=== PATIENT | female | born 1960 | race Two or more races ===

== ENCOUNTER → 2017-07-30 | Outpatient (CLI) | payer OTHER ==
[~2017-07-30] VITALS: Ht 152.4 cm; Wt 81.6 kg
[~2017-07-30] MED LIST: ESCITALOPRAM OX10 MG PO; LEXAPRO20 MG
== END | disposition home or self-care (01) ==
LOC: PPHC 18:04
DX: Z76.0 Encounter for issue of repeat prescription (principal)

== ENCOUNTER → 2017-08-08 13:35 | Outpatient (CLI) | payer OTHER | END | disposition home or self-care (01) | LOC: LAB 13:35 | DX: Z00.00 Encounter for general adult medical examination without abnormal findings (principal) ==

== ENCOUNTER 2018-07-25 15:02 | Outpatient (CLI) | payer OTHER | END 2018-07-25 15:06 | disposition home or self-care (01) | LOC: LAB 15:02 | DX: E55.9 Vitamin D deficiency, unspecified (principal); Z00.00 Encounter for general adult medical examination without abnormal findings ==

== ENCOUNTER → 2018-08-29 12:54 | Outpatient (CLI) | payer OTHER | END | disposition home or self-care (01) | LOC: LAB 12:54 | DX: E78.49 Other hyperlipidemia (principal); E55.9 Vitamin D deficiency, unspecified ==

== ENCOUNTER → 2018-11-24 12:07 | Outpatient (CLI) | payer OTHER | END | disposition home or self-care (01) | LOC: LAB 12:07 | DX: E23.6 Other disorders of pituitary gland (principal); N91.2 Amenorrhea, unspecified; N95.1 Menopausal and female climacteric states; R19.00 Intra-abdominal and pelvic swelling, mass and lump, unspecified site; N39.0 Urinary tract infection, site not specified ==

== ENCOUNTER → 2018-11-25 | Outpatient (CLI) | payer OTHER | END | disposition home or self-care (01) | LOC: MAMO-SONO 10:45 | DX: N63.10 Unspecified lump in the right breast, unspecified quadrant (principal); N63.20 Unspecified lump in the left breast, unspecified quadrant; Z12.31 Encounter for screening mammogram for malignant neoplasm of breast ==

== ENCOUNTER 2020-07-03 15:14 | Outpatient (CLI) | payer OTHER | END 2020-07-03 15:22 | disposition home or self-care (01) | LOC: LAB 15:14 | PROVIDERS: ATTEND General Practice | DX: N39.0 Urinary tract infection, site not specified (principal); Z00.00 Encounter for general adult medical examination without abnormal findings; E55.0 Rickets, active; D51.8 Other vitamin B12 deficiency anemias; Z13.29 Encounter for screening for other suspected endocrine disorder ==

== ENCOUNTER 2021-04-05 13:15 | Outpatient (CLI) | payer OTHER | END 2021-04-05 13:20 | disposition home or self-care (01) | LOC: RAD 13:15 | PROVIDERS: ATTEND Internal Medicine Cardiovascular Disease | DX: I10 Essential (primary) hypertension (principal) ==

== ENCOUNTER 2022-05-18 13:28 | Outpatient (CLI) | payer OTHER | END 2022-05-18 13:53 | disposition home or self-care (01) | LOC: LAB 13:28 | PROVIDERS: ATTEND Internal Medicine Cardiovascular Disease | DX: I10 Essential (primary) hypertension (principal) ==

== ENCOUNTER → 2023-05-01 11:49 | Outpatient (CLI) | payer OTHER ==
[2023-05-01 12:57] LABS: PH,URINE 5.5 (5.0-8.0); URINE APPEARANCE Clear; URINE BILIRRUBIN Negative (NEGATIVE); URINE BLOOD Negative; URINE COLOR Yellow; URINE GLUCOSE Negative (NEGATIVE); URINE LEUKOCYTE Negative; URINE NITRATE Negative; URINE PROTEIN Negative (NEGATIVE); URINE UROBILINOGEN 0.2 E.U./dl
[2023-05-01 12:58] LABS: URINE BACTERIA 37.7 uL (0.0-1933); URINE RBC 3.1 uL (0.0-20.8)
[2023-05-01 13:03] LABS: HEMATOCRIT 41.7 % (36.0-45.00); HEMOGLOBIN 14.6 g/dL (12.0-15.00); MEAN CELL VOLUME 93.2 fL (80.00-100.00); MEAN CORPUSCULAR HEMOGLOBIN 32.6 pg (27.00-32.0); MEAN CORPUSCULAR HGB CONC 34.9 g/dl (32.0-36.0); PLATELET COUNT 256 K/uL (150-450); RED BLOOD COUNT 4.48 M/uL (4.00-6.00); RED CELL DISTRIBUTION WIDTH 13.2 % (11.5-14.5)
[2023-05-01 13:16] LABS: URINE EPITHELIAL CELLS 1.2 uL (0.0-38.8)
[2023-05-01 13:37] LABS: ALBUMIN 3.9 gm/dL (3.4-5.0); BILIRUBIN TOTAL 0.41 mg/dL (0.3-1.2); CALCIUM 9.4 mg/dL (8.5-10.1); CHOL HDL RATIO 3.8 (0-5.0); CREATININE SERUM 0.7 mg/dL (0.55-1.02); GFR 84.24; GLOBULINA 3.3 G/DL (2.4-3.5); POTASSIUM 4.29 mEq/L (3.5-5.1); TOTAL PROTEIN 7.2 gm/dL (6.4-8.2); TSH 1.45 uIU/mL (0.358-3.74)
[2023-05-01 14:44] LABS: VITAMIN D3 25 HYDROXY 23.82 ng/ml (30-120)
== END | disposition home or self-care (01) ==
LOC: LAB 11:49
PROVIDERS: ATTEND Obstetrics & Gynecology
DX: E78.5 Hyperlipidemia, unspecified (principal); N95.1 Menopausal and female climacteric states; E23.6 Other disorders of pituitary gland; N39.0 Urinary tract infection, site not specified; N73.9 Female pelvic inflammatory disease, unspecified; A60.04 Herpesviral vulvovaginitis

== ENCOUNTER 2023-05-01 12:43 | Outpatient (CLI) | payer OTHER | END 2023-05-01 12:54 | disposition home or self-care (01) | LOC: MAMO-SONO 12:43 | PROVIDERS: ATTEND Obstetrics & Gynecology | DX: N63.10 Unspecified lump in the right breast, unspecified quadrant (principal); N63.20 Unspecified lump in the left breast, unspecified quadrant; Z12.31 Encounter for screening mammogram for malignant neoplasm of breast ==

== ENCOUNTER → 2024-09-20 11:50 | Outpatient (CLI) | payer OTHER ==
[2024-09-20 13:07] LABS: HEMATOCRIT 43.3 % (36.0-45.00); HEMOGLOBIN 14.4 g/dL (12.0-15.00); MEAN CELL VOLUME 94.5 fL (80.00-100.00); MEAN CORPUSCULAR HEMOGLOBIN 31.4 pg (27.00-32.0); MEAN CORPUSCULAR HGB CONC 33.3 g/dl (32.0-36.0); PLATELET COUNT 231 K/uL (150-450); RED BLOOD COUNT 4.58 M/uL (4.00-6.00); RED CELL DISTRIBUTION WIDTH 13.3 % (11.5-14.5)
[2024-09-20 13:14] LABS: PH,URINE 5.5 (5.0-8.0); URINE APPEARANCE Clear; URINE BILIRRUBIN Negative (NEGATIVE); URINE BLOOD Negative; URINE COLOR Yellow; URINE GLUCOSE Negative (NEGATIVE); URINE KETONE Negative (NEGATIVE); URINE LEUKOCYTE Negative; URINE NITRATE Negative; URINE PROTEIN Negative (NEGATIVE); URINE UROBILINOGEN 0.2 E.U./dl
[2024-09-20 13:16] LABS: URINE RBC 2.3 uL (0.0-20.8); URINE WBC 1.8 uL (0.0-23.2)
[2024-09-20 13:26] LABS: URINE EPITHELIAL CELLS 0.9 uL (0.0-38.8)
[2024-09-20 14:17] LABS: BILIRUBIN TOTAL 0.38 mg/dL (0.3-1.2); CALCIUM 9.2 mg/dL (8.5-10.1); CHOL HDL RATIO 4.1 (0-5.0); CREATININE SERUM 0.83 mg/dL (0.55-1.02); GFR 68.99; GLOBULINA 3.1 G/DL (2.4-3.5); POTASSIUM 4.3 mEq/L (3.5-5.1); TOTAL PROTEIN 7.1 gm/dL (6.4-8.2); TSH 1.68 uIU/mL (0.358-3.74)
== END | disposition home or self-care (01) ==
LOC: LAB 11:50
PROVIDERS: ATTEND Internal Medicine Cardiovascular Disease
DX: F33.9 Major depressive disorder, recurrent, unspecified (principal); I10 Essential (primary) hypertension

== ENCOUNTER 2025-04-26 13:10 | Outpatient (CLI) | payer OTHER | END 2025-04-26 13:22 | disposition home or self-care (01) | LOC: MAMO-SONO 13:10 | PROVIDERS: ATTEND Obstetrics & Gynecology | DX: N60.12 Diffuse cystic mastopathy of left breast (principal); N60.11 Diffuse cystic mastopathy of right breast; N64.4 Mastodynia; Z12.31 Encounter for screening mammogram for malignant neoplasm of breast ==